=== PATIENT | female | born 1945 | race Caucasian/White ===

== ENCOUNTER 2016-11-20 10:45 | Outpatient (RCR) | payer MEDICARE, BC ==
[~2016-11-20 10:45] MED LIST: ARIMIDEX1 MG PO; ATIVAN 1MG T1 MG/TAB PO; BUPROPRION PO; CEPHALEXIN500 M1 PO; CLEOCIN HCL300 MG PO; CLONAZEPAM0.5 MG PO; CYMBALTA 30MG30 MG PO; DEPAKOTE ER 50500 MG PO; DEPAKOTE ER500 M1 PO; DEPAKOTE500 M1 PO; DEPAKOTE500 MG PO; DITROPAN 5MG TAB5 MG PO; DITROPAN5 MG TD; DOXYCYCLINE 10100 MG PO; FEMARA2.5 MG PO; FLEXERIL 1010 MG/TAB PO; GABAPENTIN300 M1 PO; HORIZANT600 MG PO; KLONOPIN 1MG1 MG PO; LORTAB 5/500 501 TAB PO; MIDRIN; MIRALAX PA17 GM/Dose PO; OXYTROL PA1 PATCH.BW TD; Omeprazole; PEPCID AC20 MG PO; PRILOSEC 20MG20 MG PO; SEPTRA DS 8001 TAB PO; TYLENOL 325MG325 MG PO; VICODIN PO; WELLBUTRIN XL300 M1 PO; ZOLOFT 50MG50 MG PO; ZOLOFT PO; [UNRECOGNIZED DRUG - OTHER] PO
== END 2016-11-28 | disposition home or self-care (01) ==
LOC: WSPT
DX: M84.48XD Pathological fracture, other site, subsequent encounter for fracture with routine healing (principal)
CPT/HCPCS: G8984-GP; G8985-GP; G8986-GP

== ENCOUNTER 2016-12-05 08:59 | Outpatient (RCR) | payer MEDICARE, BC | END 2016-12-05 09:00 | disposition home or self-care (01) | LOC: WSPT 08:59 | DX: M48.54XD Collapsed vertebra, not elsewhere classified, thoracic region, subsequent encounter for fracture with routine healing (principal) ==

== ENCOUNTER → 2017-03-02 | Outpatient (CLI) | payer MEDICARE, BC ==
[~2017-03-02] MED LIST changes: +NORCO 325 MG-51 TAB PO
== END ==
LOC: BHSO 08:53
DX: F33.42 Major depressive disorder, recurrent, in full remission (principal)

== ENCOUNTER 2017-03-14 12:30 | Outpatient (RCR) | payer MEDICARE, BC ==
[~2017-03-14 12:30] MED LIST changes: -NORCO 325 MG-51 TAB PO
[2017-03-14] MEDS ORDERED: NORCO 325 MG-51 TAB PO (17:18)
== END 2017-03-21 10:35 | disposition home or self-care (01) ==
LOC: WSPT 12:30
DX: S42.255D Nondisplaced fracture of greater tuberosity of left humerus, subsequent encounter for fracture with routine healing (principal); X58.XXXD Exposure to other specified factors, subsequent encounter
CPT/HCPCS: G0283-GP; G8984-GP; G8985-GP; G8986-GP

== ENCOUNTER 2017-03-14 14:15 | Emergency (ER) | payer MEDICARE, BC ==
[~2017-03-14] VITALS: Ht 157.5 cm; Wt 76.8 kg
[2017-03-14 14:19] VITALS: TEMP 98.9
[2017-03-14 15:43] LABS: BASO % 0.4 % (0.0-2.0); EOS # 0.1 (0.0-0.7); EOS % 1.3 % (0-4.0); GRAN # 3.9 (1.4-6.5); GRAN % 52.2 % (42.2-75.2); HEMOGLOBIN 12.2 g/dl (12.5-16.0); LYMPH # 2.6 (1.2-3.4); LYMPH % 35.5 % (20.0-51.0); MEAN CELL VOLUME 97 fl (80.0-100.0); MEAN CORPUSCULAR HEMOGLOBIN 33 pg (27.0-31.0); MEAN CORPUSCULAR HGB CONC 34 g/dl (33.0-37.0); MEAN PLATELET VOLUME 9.8 fl (7.4-10.4); MONO # 0.8 (0.1-0.6); MONO % 10.2 % (1.7-9.3); PLATELET COUNT 213 K/mm3 (130-400); RED BLOOD COUNT 3.68 M/mm3 (4.10-5.30); REDCELL DISTRIBUTION WIDTH-CV 12.6 % (11.5-14.5); WHITE BLOOD COUNT 7.4 K/mm3 (4.8-10.8)
[2017-03-14 15:44] LABS: HEMATOCRIT 35.5 % (37.0-47.0)
[2017-03-14 16:00] LABS: PH 5 (5-8); URINE APPEARANCE Clear; URINE BACTERIA None Seen /hpf; URINE BILIRUBIN Negative (NEGATIVE); URINE BLOOD Negative (NEGATIVE); URINE COLOR Amber; URINE GLUCOSE Negative (NEGATIVE); URINE KETONE Trace (NEGATIVE); URINE RBC 0-2 /hpf; URINE UROBILINOGEN Negative (NEGATIVE)
[2017-03-14 16:02] LABS: ADJUSTED CALCIUM 9.3 mg/dL (8.4-10.2); ALANINE AMINOTRANSFERASE 52 U/L (9-52); ALBUMIN 3.4 gm/dL (3.5-5.0); ALKALINE PHOSPHATASE 54 U/L (50-136); ANION GAP 7 mmol/L (7-16); BILIRUBIN,TOTAL 0.5 mg/dL (0.0-1.0); BLOOD UREA NITROGEN 18 mg/dL (7-17); C-REACTIVE PROTEIN < 0.5 mg/dL (0.0-0.9); CALCIUM 8.8 mg/dL (8.4-10.2); CARBON DIOXIDE 26 mmol/L (22-30); CHLORIDE 106 mmol/L (98-107); CREATININE, serum 0.64 mg/dL (0.52-1.25); GLUCOSE 98 mg/dL (74-106); SODIUM 139 mmol/L (137-145)
[2017-03-14 16:10] LABS: B-TYPE NATRIURETIC PEPTIDE 72 pg/mL (0-125)
[2017-03-14 16:12] LABS: TROPONIN-I < 0.012 ng/mL (0.000-0.034)
[2017-03-14 16:48] VITALS: BP 117/85
[2017-03-14] MEDS ORDERED: NORCO 325 MG-51 TAB PO (17:18)
[2017-03-14 17:23] VITALS: PULSE 76
== END 2017-03-14 17:30 | disposition home or self-care (01) ==
LOC: COL.ER 14:15
PROVIDERS: Emergency Medicine
DX: R53.1 Weakness (principal); R53.81 Other malaise; Z85.3 Personal history of malignant neoplasm of breast; Z91.81 History of falling; M25.512 Pain in left shoulder

== ENCOUNTER → 2017-06-08 | Outpatient (CLI) | payer MEDICARE, BC ==
[~2017-06-08] MED LIST changes: +NORCO 325 MG-51 TAB PO
== END ==
LOC: BHSO 09:03
DX: F43.10 Post-traumatic stress disorder, unspecified (principal)

== ENCOUNTER → 2017-06-20 | Outpatient (CLI) | payer MEDICARE, BC | LOC: MC.RAD 09:05 | DX: Z12.31 Encounter for screening mammogram for malignant neoplasm of breast (principal); Z85.3 Personal history of malignant neoplasm of breast; Z90.12 Acquired absence of left breast and nipple; Z92.3 Personal history of irradiation ==

== ENCOUNTER → 2017-08-17 | Outpatient (CLI) | payer MEDICARE, BC | LOC: BHSO 09:05 | DX: F33.1 Major depressive disorder, recurrent, moderate (principal) ==

== ENCOUNTER 2017-09-18 09:26 | Outpatient (RCR) | payer MEDICARE, BC | END 2017-09-20 16:50 | disposition home or self-care (01) | LOC: WSPT 09:26 | DX: M47.814 Spondylosis without myelopathy or radiculopathy, thoracic region (principal) | CPT/HCPCS: G8984-GP; G8985-GP ==

== ENCOUNTER 2017-11-06 11:49 | Emergency (ER) | payer MEDICARE, BC ==
[~2017-11-06] VITALS: Ht 160 cm; Wt 60.5 kg
[2017-11-06 12:06] VITALS: TEMP 98.9
[2017-11-06 13:48] LABS: BASO # 0.1 (0.0-0.2); BASO % 0.5 % (0.0-2.0); EOS % 0.2 % (0-4.0); GRAN # 6.2 (1.4-6.5); GRAN % 66.1 % (42.2-75.2); HEMATOCRIT 43.6 % (37.0-47.0); HEMOGLOBIN 14.6 g/dl (12.5-16.0); LYMPH # 2.2 (1.2-3.4); LYMPH % 23.8 % (20.0-51.0); MEAN CELL VOLUME 100 fl (80.0-100.0); MEAN CORPUSCULAR HEMOGLOBIN 34 pg (27.0-31.0); MEAN CORPUSCULAR HGB CONC 34 g/dl (33.0-37.0); MEAN PLATELET VOLUME 10.3 fl (7.4-10.4); MONO # 0.8 (0.1-0.6); PLATELET COUNT 199 K/mm3 (130-400); RED BLOOD COUNT 4.35 M/mm3 (4.10-5.30); REDCELL DISTRIBUTION WIDTH-CV 12.7 % (11.5-14.5)
[2017-11-06 14:15] LABS: ALANINE AMINOTRANSFERASE 29 U/L (9-52); ALBUMIN 4.6 gm/dL (3.5-5.0); ALKALINE PHOSPHATASE 76 U/L (50-136); ANION GAP 11 mmol/L (7-16); AST,SGOT 68 U/L (15-37); BILIRUBIN,TOTAL 0.7 mg/dL (0.0-1.0); BLOOD UREA NITROGEN 18 mg/dL (7-17); CALCIUM 10.2 mg/dL (8.4-10.2); CARBON DIOXIDE 25 mmol/L (22-30); CHLORIDE 103 mmol/L (98-107); CREATININE, serum 0.55 mg/dL (0.52-1.25); GLUCOSE 88 mg/dL (74-106); POTASSIUM 3.9 mmol/L (3.4-5.0); SODIUM 140 mmol/L (137-145); TOTAL PROTEIN 7.6 gm/dL (6.4-8.2)
[2017-11-06 14:29] LABS: TROPONIN-I < 0.012 ng/mL (0.000-0.034)
[2017-11-06 17:23] VITALS: BP 143/82; PULSE 75
== END 2017-11-06 17:31 | disposition home or self-care (01) ==
LOC: COL.ER 11:49
PROVIDERS: Emergency Medicine
DX: F41.9 Anxiety disorder, unspecified (principal); G30.9 Alzheimer's disease, unspecified; F02.80 Dementia in other diseases classified elsewhere, unspecified severity, without behavioral disturbance, psychotic disturbance, mood disturbance, and anxiety; F32.9 Major depressive disorder, single episode, unspecified; F17.210 Nicotine dependence, cigarettes, uncomplicated; Z85.3 Personal history of malignant neoplasm of breast

== ENCOUNTER → 2017-11-08 | Outpatient (CLI) | payer MEDICARE, BC | LOC: BHSO 09:08 | DX: F33.41 Major depressive disorder, recurrent, in partial remission (principal) | CPT/HCPCS: G0463 ==

== ENCOUNTER → 2017-12-13 | Outpatient (CLI) | payer MEDICARE, BC | LOC: BHSO 10:46 | DX: F33.41 Major depressive disorder, recurrent, in partial remission (principal) | CPT/HCPCS: G0463 ==

== ENCOUNTER → 2018-03-19 | Outpatient (CLI) | payer MEDICARE, BC | LOC: BHSO 11:06 | DX: F31.31 Bipolar disorder, current episode depressed, mild (principal) | CPT/HCPCS: G0463 ==

== ENCOUNTER 2018-04-17 13:12 | Outpatient (RCR) | payer MEDICARE, BC | END 2018-05-17 09:43 | disposition home or self-care (01) | LOC: WSC 13:12 | DX: S42.255D Nondisplaced fracture of greater tuberosity of left humerus, subsequent encounter for fracture with routine healing (principal); M47.818 Spondylosis without myelopathy or radiculopathy, sacral and sacrococcygeal region; R29.898 Other symptoms and signs involving the musculoskeletal system; Z79.899 Other long term (current) drug therapy | CPT/HCPCS: G8984-GP; G8985-GP; G8986-GP ==

== ENCOUNTER → 2018-04-29 | Outpatient (CLI) | payer MEDICARE, BC | LOC: COL.RAD 11:25 | DX: F03.90 Unspecified dementia, unspecified severity, without behavioral disturbance, psychotic disturbance, mood disturbance, and anxiety (principal) ==

== ENCOUNTER → 2018-06-24 | Outpatient (CLI) | payer MEDICARE, BC | LOC: MC.RAD 09:40 | DX: Z12.31 Encounter for screening mammogram for malignant neoplasm of breast (principal); N64.89 Other specified disorders of breast; Z85.3 Personal history of malignant neoplasm of breast; Z92.3 Personal history of irradiation; Z98.890 Other specified postprocedural states ==

== ENCOUNTER → 2018-08-14 | Outpatient (CLI) | payer MEDICARE, BC | LOC: BHSO 09:27 | DX: F33.41 Major depressive disorder, recurrent, in partial remission (principal) | CPT/HCPCS: G0463 ==

== ENCOUNTER → 2018-11-12 | Outpatient (CLI) | payer MEDICARE, BC | LOC: BHSO 10:25 | DX: F06.32 Mood disorder due to known physiological condition with major depressive-like episode (principal) | CPT/HCPCS: G0463 ==

== ENCOUNTER 2018-11-27 09:45 | Outpatient (RCR) | payer MEDICARE, BC | END 2019-02-09 | disposition home or self-care (01) | LOC: WSC | DX: M47.816 Spondylosis without myelopathy or radiculopathy, lumbar region (principal); R26.89 Other abnormalities of gait and mobility; Z79.899 Other long term (current) drug therapy | CPT/HCPCS: G8978-GP; G8979-GP ==

== ENCOUNTER → 2019-06-12 | Outpatient (CLI) | payer MEDICARE, BC | LOC: BHSO 10:17 | DX: F41.1 Generalized anxiety disorder (principal) | CPT/HCPCS: G0463 ==

== ENCOUNTER → 2019-06-26 | Outpatient (CLI) | payer MEDICARE, BC | LOC: MC.RAD 10:10 | DX: Z12.31 Encounter for screening mammogram for malignant neoplasm of breast (principal); Z98.890 Other specified postprocedural states; Z85.3 Personal history of malignant neoplasm of breast; Z92.3 Personal history of irradiation ==

== ENCOUNTER → 2019-09-09 | Outpatient (CLI) | payer MEDICARE, BC | LOC: BHSO 09:47 | DX: F41.1 Generalized anxiety disorder (principal) | CPT/HCPCS: G0463 ==

== ENCOUNTER → 2020-06-16 | Outpatient (CLI) | payer MEDICARE, BC | LOC: BHSO 09:20 | DX: F41.1 Generalized anxiety disorder (principal) ==